=== PATIENT | female | born 1970 | race Caucasian/White ===

== ENCOUNTER 2025-01-14 09:32 | Outpatient (CLI) | payer MEDICAID, SELFPAY | END 2025-01-14 09:33 | disposition home or self-care (01) | PROVIDERS: PCP Emergency Medicine; Visit Provider Emergency Medicine | DX: E78.5 Hyperlipidemia, unspecified (principal); R63.5 Abnormal weight gain; R20.2 Paresthesia of skin | CPT/HCPCS: 80053; 80061; 82607; 84443 ==